=== PATIENT | male | born 1955 ===

== ENCOUNTER 2016-10-13 04:21 | Inpatient (IN) | payer MEDICARE, MEDICAID ==
[~2016-10-13] VITALS: Ht 182.9 cm; Wt 103.0 kg
[2016-10-13 03:45] VITALS: BP 146/89
[2016-10-13] MEDS ORDERED: BACITRACIN 28.4 GM OINTMENT TP PRN (08:15)
[2016-10-13] MEDS ORDERED: ACETAMINOPHEN 325 MG TABLET PO PRN (08:15)
[2016-10-13] MEDS ORDERED: BENZOCAINE/MENTHOL LOZENGE [8 LOZENGES/PACKET] MM PRN (08:15)
[2016-10-13] MEDS ORDERED: PETROLATUM,WHITE 71 GM JELLY TP PRN (08:15)
[2016-10-13] MEDS ORDERED: ALBUTEROL SULFATE HFA 90 MCG/PUFF 8 GM INHALER IH PRN (08:15)
[2016-10-13] MEDS ORDERED: CloNIDine HCL 0.1 MG TABLET PO PRN (08:15)
[2016-10-13] MEDS ORDERED: LOPERAMIDE HCL 2 MG CAPSULE PO PRN (08:15)
[2016-10-13] MEDS: PANTOPRAZOLE SODIUM 40 MG DR TABLET PO SCH (09:20)
[2016-10-13 09:22] VITALS: BP 136/76
[2016-10-13] MEDS: TraMADol HCL 50 MG TABLET PO PRN ×2 (09:22→16:42)
[2016-10-13] MEDS: LORazepam 2 MG TABLET PO PRN (10:48)
[2016-10-13] MEDS: RIVAROXABAN 20 MG TABLET PO SCH (16:22)
[2016-10-13 16:38] VITALS: BP 155/76
[2016-10-13 19:49] VITALS: BP 138/86
[2016-10-13] MEDS: NITROGLYCERIN 0.4 MG SUBLINGUAL TABLET #25 SL PRN (19:49)
[2016-10-13] MEDS: ONDANSETRON HCL 4 MG TABLET PO PRN (20:01)
[2016-10-13 20:29] VITALS: BP 128/82
[2016-10-13] MEDS: MAG HYDROX/AL HYDROX/SIMETH ES 30 ML SUSPENSION UDCUP PO PRN (20:32)
[2016-10-14] MEDS: LORazepam 2 MG TABLET PO PRN ×2 (00:15→09:43)
[2016-10-14] MEDS: TraMADol HCL 50 MG TABLET PO PRN ×3 (00:17→16:14)
[2016-10-14 00:18] VITALS: BP 151/85
[2016-10-14] MEDS: ZOLPIDEM TARTRATE 10 MG TABLET PO PRN ×2 (01:27→21:55)
[2016-10-14] MEDS: LEVOTHYROXINE SODIUM 25 MCG TABLET PO SCH (06:33)
[2016-10-14] MEDS: PREGABALIN 50 MG CAPSULE PO SCH ×3 (08:48→16:13)
[2016-10-14] MEDS: PANTOPRAZOLE SODIUM 40 MG DR TABLET PO SCH (08:48)
[2016-10-14 09:40] VITALS: BP 152/91
[2016-10-14] MEDS: CLOPIDOGREL BISULFATE 75 MG TABLET PO SCH (09:40)
[2016-10-14] MEDS: ROPINIRole HCL 0.25 MG TABLET PO SCH ×3 (09:40→16:13)
[2016-10-14] MEDS: FENOFIBRATE 48 MG TABLET PO SCH (09:40)
[2016-10-14] MEDS: CAPTOPRIL 12.5 MG TABLET PO SCH ×3 (09:40→16:13)
[2016-10-14 12:48] VITALS: BP 125/85
[2016-10-14 16:13] VITALS: BP 138/86
[2016-10-14] MEDS: ONDANSETRON HCL 4 MG TABLET PO PRN (16:14)
[2016-10-14] MEDS: MAGNESIUM HYDROXIDE SUSPENSION 30 ML UDCUP PO PRN (16:18)
[2016-10-14 17:13] VITALS: BP 141/80
[2016-10-14] MEDS: RIVAROXABAN 20 MG TABLET PO SCH (17:15)
[2016-10-14] MEDS: ATORVASTATIN CALCIUM 20 MG TABLET PO SCH (20:51)
[2016-10-14] MEDS: PRAZOSIN HCL 1 MG CAPSULE PO SCH (20:51)
[2016-10-15] MEDS: MAG HYDROX/AL HYDROX/SIMETH ES 30 ML SUSPENSION UDCUP PO PRN (04:18)
[2016-10-15 05:57] VITALS: BP 135/84
[2016-10-15] MEDS: LEVOTHYROXINE SODIUM 25 MCG TABLET PO SCH (06:45)
[2016-10-15 06:52] LABS: BASOPHILS % (AUTO) 1.6 % (0.0-2.0); EOSINOPHILS % (AUTO) 2.7 % (1.0-6.0); HEMATOCRIT 48.1 % (41-53); HEMOGLOBIN 15.2 g/dL (13.5-17.5); LYMPHOCYTES # (AUTO) 3.2 K/uL (1.0-4.8); LYMPHOCYTES % (AUTO) 27.4 % (22.0-44.0); MEAN CORPUSCULAR HEMOGLOBIN 28.6 pg (26.0-34.0); MEAN CORPUSCULAR HGB CONC 31.6 G/dL (31.0-37.0); MEAN CORPUSCULAR VOLUME 91 fL (80-100); MONOCYTES # (AUTO) 1.3 K/uL (0.1-1.0); MONOCYTES % (AUTO) 11.5 % (2.0-9.0); NEUTROPHILS # (AUTO) 6.6 K/uL (1.8-7.7); NEUTROPHILS % (AUTO) 56.8 % (40.0-70.0); PLATELET COUNT (AUTO) 465 K/uL (150-450); RED BLOOD CELL COUNT(AUTO) 5.31 MIL/uL (4.50-5.90); RED CELL DISTRIBUTION WIDTH 15.3 % (11.5-14.5); WHITE BLOOD COUNT (AUTO) 11.6 K/uL (4.5-11.0)
[2016-10-15 07:05] LABS: INR 1.2 (0.9-1.1); PROTHROMBIN TIME 12.7 SEC (9.4-11.6)
[2016-10-15 07:35] LABS: ALANINE AMINOTRANSFERASE 29 U/L (12-78); ALBUMIN 3.7 g/dL (3.4-5.0); ANION GAP 9 mmol/L (8-16); ASPARTATE AMINOTRANSFERASE 18 U/L (15-37); BILIRUBIN,TOTAL 0.5 mg/dL (0.1-1.0); CALCIUM, TOTAL 8.7 mg/dL (8.8-10.5); CARBON DIOXIDE 26 mmol/L (22-29); CHLORIDE 107 mmol/L (98-107); CHOL/HDL RATIO 3.4 (4.2-7.3); CREATININE 0.94 mg/dL (0.60-1.30); GLOMERULAR FILTR. RATE CALC > 60 mL/min (>60); POTASSIUM 3.8 mmol/L (3.5-5.1); SODIUM SERUM 142 mmol/L (136-145); THYROID STIMULATING HORMONE 0.49 uIU/mL (0.36-3.74); TOTAL PROTEIN, SERUM 7.5 g/dL (6.4-8.2); UREA NITROGEN, BLOOD 19 mg/dL (7-18)
[2016-10-15 07:41] LABS: HEMOGLOBIN A1C 6.2 % (4.5-6.2)
[2016-10-15 08:50] VITALS: BP 117/69
[2016-10-15] MEDS: FENOFIBRATE 48 MG TABLET PO SCH (08:52)
[2016-10-15] MEDS: PANTOPRAZOLE SODIUM 40 MG DR TABLET PO SCH (08:52)
[2016-10-15] MEDS: ROPINIRole HCL 0.25 MG TABLET PO SCH ×3 (08:52→16:17)
[2016-10-15] MEDS: PREGABALIN 50 MG CAPSULE PO SCH ×3 (08:52→16:18)
[2016-10-15] MEDS: LORazepam 2 MG TABLET PO PRN (08:52)
[2016-10-15] MEDS: CLOPIDOGREL BISULFATE 75 MG TABLET PO SCH (08:52)
[2016-10-15] MEDS: TraMADol HCL 50 MG TABLET PO PRN (08:52)
[2016-10-15] MEDS: CAPTOPRIL 12.5 MG TABLET PO SCH ×3 (08:53→16:17)
[2016-10-15] MEDS: ESCITALOPRAM OXALATE 10 MG TABLET PO SCH (08:53)
[2016-10-15 08:56] LABS: RBC MORPHOLOGY COMMENT NORMAL RBC MORPH
[2016-10-15] MEDS: ONDANSETRON HCL 4 MG TABLET PO PRN ×2 (09:39→23:58)
[2016-10-15 12:15] VITALS: BP 127/72
[2016-10-15 16:00] VITALS: BP 122/79
[2016-10-15] MEDS: RIVAROXABAN 20 MG TABLET PO SCH (16:17)
[2016-10-15] MEDS: PRAZOSIN HCL 1 MG CAPSULE PO SCH (20:05)
[2016-10-15] MEDS: ATORVASTATIN CALCIUM 20 MG TABLET PO SCH (20:05)
[2016-10-15 20:07] VITALS: BP 146/97
[2016-10-16] VITALS (7 sets, daily range): BP systolic 115–136; BP diastolic 69–86
[2016-10-16] MEDS: TraMADol HCL 50 MG TABLET PO PRN ×2 (01:34→22:26)
[2016-10-16] MEDS: LORazepam 0.5 MG TABLET PO PRN ×2 (04:10→12:28)
[2016-10-16] MEDS: MAGNESIUM HYDROXIDE SUSPENSION 30 ML UDCUP PO PRN (04:19)
[2016-10-16] MEDS: LEVOTHYROXINE SODIUM 50 MCG TABLET PO SCH (06:30)
[2016-10-16] MEDS ORDERED: LEVOTHYROXINE SODIUM 200 MCG TABLET PO SCH (07:00)
[2016-10-16] MEDS: CAPTOPRIL 12.5 MG TABLET PO SCH ×3 (09:05→17:16)
[2016-10-16] MEDS: ESCITALOPRAM OXALATE 10 MG TABLET PO SCH (09:06)
[2016-10-16] MEDS: POLYETHYLENE GLYCOL 3350 17 GM PACKET PO SCH (09:07)
[2016-10-16] MEDS: CLOPIDOGREL BISULFATE 75 MG TABLET PO SCH (09:08)
[2016-10-16] MEDS: PANTOPRAZOLE SODIUM 40 MG DR TABLET PO SCH (09:08)
[2016-10-16] MEDS: ROPINIRole HCL 0.25 MG TABLET PO SCH ×3 (09:08→16:44)
[2016-10-16] MEDS: FENOFIBRATE 48 MG TABLET PO SCH (09:09)
[2016-10-16] MEDS: CHOLECALCIFEROL (VIT D3) 1,000 UNITS TABLET PO SCH (09:09)
[2016-10-16] MEDS: NITROGLYCERIN 0.4 MG SUBLINGUAL TABLET #25 SL PRN ×3 (10:30→18:39)
[2016-10-16] MEDS: PREGABALIN 50 MG CAPSULE PO SCH ×3 (10:37→16:43)
[2016-10-16] MEDS: ONDANSETRON HCL 4 MG TABLET PO PRN (11:49)
[2016-10-16] MEDS: MAG HYDROX/AL HYDROX/SIMETH ES 30 ML SUSPENSION UDCUP PO PRN (12:28)
[2016-10-16] MEDS: RIVAROXABAN 20 MG TABLET PO SCH (16:43)
[2016-10-16] MEDS: PRAZOSIN HCL 1 MG CAPSULE PO SCH (22:21)
[2016-10-16] MEDS: ATORVASTATIN CALCIUM 20 MG TABLET PO SCH (22:21)
[2016-10-17] MEDS: MAG HYDROX/AL HYDROX/SIMETH ES 30 ML SUSPENSION UDCUP PO PRN (01:42)
[2016-10-17 02:35] VITALS: BP 137/76
[2016-10-17] MEDS: LORazepam 0.5 MG TABLET PO PRN ×2 (02:51→10:18)
[2016-10-17] MEDS: TraMADol HCL 50 MG TABLET PO PRN ×2 (04:45→10:51)
[2016-10-17] MEDS: LEVOTHYROXINE SODIUM 50 MCG TABLET PO SCH (06:56)
[2016-10-17 08:16] VITALS: BP 147/86
[2016-10-17] MEDS: CAPTOPRIL 12.5 MG TABLET PO SCH ×3 (08:54→16:17)
[2016-10-17] MEDS: ESCITALOPRAM OXALATE 10 MG TABLET PO SCH (08:55)
[2016-10-17] MEDS: PANTOPRAZOLE SODIUM 40 MG DR TABLET PO SCH (08:56)
[2016-10-17] MEDS: POLYETHYLENE GLYCOL 3350 17 GM PACKET PO SCH (08:56)
[2016-10-17] MEDS: PREGABALIN 50 MG CAPSULE PO SCH ×3 (08:56→16:17)
[2016-10-17] MEDS: CLOPIDOGREL BISULFATE 75 MG TABLET PO SCH (08:56)
[2016-10-17] MEDS: ROPINIRole HCL 0.25 MG TABLET PO SCH ×3 (08:56→16:17)
[2016-10-17] MEDS: FENOFIBRATE 48 MG TABLET PO SCH (08:57)
[2016-10-17] MEDS: CHOLECALCIFEROL (VIT D3) 1,000 UNITS TABLET PO SCH (08:57)
[2016-10-17 12:39] VITALS: BP 133/81
[2016-10-17] MEDS ORDERED: PANT40TA25 PO (13:45)
[2016-10-17] MEDS ORDERED: ROPI0.255 PO (13:45)
[2016-10-17] MEDS ORDERED: MIRALAX PO (13:45)
[2016-10-17] MEDS ORDERED: FENO48TA15 PO (13:45)
[2016-10-17] MEDS ORDERED: ESCI10TA PO (13:45)
[2016-10-17] MEDS ORDERED: CAPT12.55 PO (13:45)
[2016-10-17] MEDS ORDERED: LEVO50 PO (13:45)
[2016-10-17] MEDS ORDERED: CLOP75 PO (13:45)
[2016-10-17] MEDS ORDERED: PREG50 PO (13:45)
[2016-10-17] MEDS ORDERED: ATOR20TA86 PO (13:45)
[2016-10-17] MEDS ORDERED: POLY238P2 PO (13:45)
[2016-10-17] MEDS ORDERED: PRAZ1 PO (13:45)
[2016-10-17] MEDS ORDERED: RIVA20TA PO (13:45)
[2016-10-17] MEDS ORDERED: VITAD1000 PO (13:45)
[2016-10-17 17:12] VITALS: BP 140/77
== END 2016-10-17 18:00 | disposition home or self-care (01) | DRG 885 ==
LOC: 3EI 04:25
DX: F33.2 Major depressive disorder, recurrent severe without psychotic features (principal); I26.99 Other pulmonary embolism without acute cor pulmonale; R45.851 Suicidal ideations; I10 Essential (primary) hypertension; K21.9 Gastro-esophageal reflux disease without esophagitis; J45.909 Unspecified asthma, uncomplicated; E78.5 Hyperlipidemia, unspecified; E03.9 Hypothyroidism, unspecified; K59.09 Other constipation; D35.2 Benign neoplasm of pituitary gland; I25.10 Atherosclerotic heart disease of native coronary artery without angina pectoris; F43.10 Post-traumatic stress disorder, unspecified; E55.9 Vitamin D deficiency, unspecified; Z96.659 Presence of unspecified artificial knee joint; F41.9 Anxiety disorder, unspecified; R07.9 Chest pain, unspecified; E29.1 Testicular hypofunction; Z53.29 Procedure and treatment not carried out because of patient's decision for other reasons; D18.09 Hemangioma of other sites; Z90.49 Acquired absence of other specified parts of digestive tract; Z90.81 Acquired absence of spleen; Z91.5 Personal history of self-harm; Z88.1 Allergy status to other antibiotic agents; Z88.8 Allergy status to other drugs, medicaments and biological substances; Z56.0 Unemployment, unspecified; Z79.01 Long term (current) use of anticoagulants
CPT/HCPCS: 82306; 83036; 83735; 84100; 84402; 84403; 84443; 87081; 93005; 97162; 97167; Q0162